=== PATIENT | male | born 1980 | race Caucasian/White ===

== ENCOUNTER 2019-07-09 20:08 | Emergency (ER) | payer OTHER ==
[~2019-07-09] VITALS: Ht 182.9 cm; Wt 127.0 kg
[2019-07-09] MEDS ORDERED: LIDOCAINE 2% VISCOUS 15 ML SOLUTION. ONE (20:20)
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
[2019-07-09 20:38] VITALS: BP 157/85
[2019-07-09] MEDS: LIDOCAINE 2% VISCOUS 15 ML SOLUTION. SWSW ONE (20:39)
[2019-07-09] MEDS: NEOMY/BACITR/POLYMYXIN OINT PACKET. TP ONE (20:39)
[2019-07-09] MEDS: DIPH,PERTUSS(ACELL),TET VAC/PF 0.5 ML SYRINGE. VAX IM ONE (20:40)
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
== END 2019-07-09 21:10 | disposition home or self-care (01) ==
LOC: ER 20:08
DX: S50.812A Abrasion of left forearm, initial encounter (principal); S50.811A Abrasion of right forearm, initial encounter; S80.212A Abrasion, left knee, initial encounter; S80.211A Abrasion, right knee, initial encounter; V20.4XXA Motorcycle driver injured in collision with pedestrian or animal in traffic accident, initial encounter; Y93.55 Activity, bike riding; Y92.488 Other paved roadways as the place of occurrence of the external cause; Y99.8 Other external cause status
CPT/HCPCS: 71045; 73562; 90471; 90715; 99284-25